=== PATIENT | male | born 2000 | race Caucasian/White ===

== ENCOUNTER 2020-06-29 21:42 | Emergency (ER) | payer SELFPAY ==
[2020-06-29] MEDS ORDERED: traMADol 50 MG Tab PO ONE (22:07)
[2020-06-29] MEDS ORDERED: Ibuprofen 600 MG Tab PO ONE (22:07)
--- NOTE | 2020-06-29 22:48 | EDM.PDOC ---
ED HPI GENERAL MEDICAL PROBLEM - General Chief Complaint: Lower Extremity Injury/Pain Stated Complaint: INJURED LT FOOT Time Seen by Provider: 06/29/20 22:01 - History of Present Illness INITIAL COMMENTS - FREE TEXT/NARRATIVE: HISTORY AND PHYSICAL: History of present illness: This is a healthy 20-year-old gentleman who presents ER today complaining of pain to his left foot that was incurred after a transmission fell on his foot. Patient reports pain with ambulation. Patient reports superficial abrasion over the dorsum of his left foot. Patient denies any other injuries or discomfort. Review of systems: As per history of present illness and below otherwise all systems reviewed and negative. Past medical history: As per history of present illness and as reviewed below otherwise noncontributory. Surgical history: As per history of present illness and as reviewed below otherwise noncontributory. Social history: No reported history of drug or alcohol abuse. Family history: As per history of present illness and as reviewed below otherwise noncontributory. Physical exam: Constitutional: Patient is oriented to person, place, and time. Appears well- developed and well-nourished. No distress. HEENT: Moist mucous membranes Head: Normocephalic and atraumatic Eyes: Right eye exhibits no discharge. Left eye exhibits no discharge. No scleral icterus Neck: Normal range of motion. No tracheal deviation present. Cardiovascular: Normal rate and regular rhythm. Pulmonary: Effort normal, no respiratory distress. Abdominal: No distention Musculoskeletal: Normal range of motion Neurologic: Alert and oriented to person, place and time. Skin: [place], warm and dry. Psychiatric: Normal mood and affect. Behavior is normal. Judgment and thought content normal. Nursing note and vital signs have been reviewed Patient's ER physical exam is significant for soft tissue swelling and tenderness to palpation to the top of his left foot. Patient has excellent capillary refill. Patient is neurovascular intact distally. Diagnostics: X-ray left foot No acute fracture dislocation as interpreted by ER Dr. Childs X-ray left ankle No acute fracture dislocation as interpreted by ER Dr. Childs Therapeutics: Ultram 50 mg p.o. Ibuprofen 600 mg p.o. Hard soled shoe, crutches Assessment and plan: This is a 20-year-old gentleman who presents the ER today secondary to crush injury of the left foot. Patient's x-rays are negative for acute fracture. Patient will be placed in a hard sole shoe and crutches to assist with healing. Patient be given a prescription for ibuprofen and Ultram as well as rest elevation ice. DME note: Hard sole shoe ordered in order to assist with healing of likely foot sprain/crush injury. Crutches ordered in order to assist patient with ambulation and healing of his left foot injury. L top foot Pain Score (Numeric/FACES): 7 - Related Data Allergies Allergy/AdvReac Type Severity Reaction Status Date / Time No Known Allergies Allergy Verified 06/29/20 22:05 Home Meds: Home Meds Ibuprofen 600 mg PO Q6HR PRN #30 tablet 06/29/20 [Rx] traMADol [Ultram] 50 mg PO Q6H PRN #12 tab 06/29/20 [Rx] Past Medical History - Past Health History Medical/Surgical History: Denies Medical/Surgical History - Infectious Disease History Infectious Disease History: Reports: Chicken Pox Social & Family History - Family History Family Medical History: Noncontributory - Caffeine Use Caffeine Use: Reports: Coffee, Energy Drinks, Soda - Recreational Drug Use Recreational Drug Use: No Review of Systems - Review of Systems Review Of Systems: See Below ED EXAM, GENERAL - Physical Exam Exam: See Below Course - Vital Signs Last Recorded V/S: Last Vital Signs Temp 97.8 F 06/29/20 21:57 Pulse 78 06/29/20 21:57 Resp 18 06/29/20 21:57 BP 129/81 06/29/20 21:57 Pulse Ox 98 06/29/20 21:57 - Orders/Labs/Meds Orders: Active Orders 24 hr Category Date Time Status DME for Discharge [COMM] Stat Oth 06/29/20 23:37 Ordered Meds: Medications Discontinued Medications Generic Name Dose Route Start Last Admin Trade Name Freq PRN Reason Stop Dose Admin Ibuprofen 600 mg 06/29/20 22:07 06/29/20 22:12 Motrin PO 06/29/20 22:08 600 mg ONETIME ONE Administration Tramadol HCl 50 mg 06/29/20 22:07 06/29/20 22:12 Ultram PO 06/29/20 22:08 50 mg ONETIME ONE Administration Departure - Departure Time of Disposition: 23:42 Disposition: Home, Self-Care 01 Clinical Impression: Crush injury of left foot, Sprain of foot, left - Discharge Information Instructions: Crutch Use, Adult, [id number], Foot Sprain, Crush Injury of the Foot, [id number] Referrals: PCP,None [Primary Care Provider] - Forms: ED Department Discharge Additional Instructions: You were seen and evaluated in the ER secondary to the injury to your left foot. The x-rays obtained today did not show any fracture. You likely have bruising to the bone and possible injury to the ligaments of your foot. You will be given a splint for your foot to use until you are pain-free which should help you heal faster. You will also be given crutches in order to utilize to keep pressure off your foot. You may weight-bear as tolerated. Please make an appointment to follow-up with your Workmen's Comp. doctor for further evaluation and management of your injury. You have been given a prescription for Ultram as well as ibuprofen to assist with pain and discomfort. The following information is given to patients seen in the emergency department who are being discharged to home. This information is to outline your options for follow-up care. We provide all patients seen in our emergency department with a follow-up referral. The need for follow-up, as well as the timing and circumstances, are variable depending upon the specifics of your emergency department visit. If you don't have a primary care physician on staff, we will provide you with a referral. We always advise you to contact your personal physician following an emergency department visit to inform them of the circumstance of the visit and for follow-up with them and/or the need for any referrals to a consulting specialist. The emergency department will also refer you to a specialist when appropriate. This referral assures that you have the opportunity for follow-up care with a specialist. All of these measure are taken in an effort to provide you with optimal care, which includes your follow-up. Under all circumstances we always encourage you to contact your private physician who remains a resource for coordinating your care. When calling for follow-up care, please make the office aware that this follow-up is from your recent emergency room visit. If for any reason you are refused follow-up, please contact the [facility] Emergency Department at and asked to speak to the emergency department charge nurse. Sepsis Event Note (ED) - Evaluation Sepsis Screening Result: No Definite Risk - Focused Exam Vital Signs: Vital Signs Temp Pulse Resp BP Pulse Ox 06/29/20 21:57 97.8 F 78 18 129/81 98 - My Orders Last 24 Hours: My Active Orders 06/29/20 23:37 DME for Discharge [COMM] Stat - Assessment/Plan Last 24 Hours: My Active Orders 06/29/20 23:37 DME for Discharge [COMM] Stat
--- NOTE | 2020-06-29 23:30 | CR ---
Left ankle: 3 views left ankle were obtained. Comparison: No previous ankle study. Ankle mortise is symmetric. No acute fracture, dislocation or other bony abnormality is appreciated. Impression: 1. Nothing acute is seen on left ankle exam. Diagnostic code #1 This report was dictated in MDT
--- NOTE | 2020-06-29 23:31 | CR ---
Left foot: 3 views left foot were obtained. Comparison: No prior foot exam. Slight soft tissue swelling seen dorsally. Joint spaces are preserved. No acute fracture, dislocation or other bony abnormality is appreciated. Impression: 1. Soft tissue swelling dorsally. 2. No acute bony abnormality is appreciated. Diagnostic code #2 This report was dictated in MDT
== END 2020-06-30 00:10 | disposition home or self-care (01) ==
LOC: MW.ED 21:42
DX: S97.82XA Crushing injury of left foot, initial encounter (principal); S93.602A Unspecified sprain of left foot, initial encounter; W18.30XA Fall on same level, unspecified, initial encounter
CPT/HCPCS: 73610; 73630; 99283; A9270

== ENCOUNTER 2021-05-29 11:40 | Emergency (ER) | payer OTHER ==
--- NOTE | 2021-05-29 11:50 | EDM.PDOC ---
ED HPI GENERAL MEDICAL PROBLEM - General Chief Complaint: Respiratory Problem Stated Complaint: CHILLS COUGH SOB Time Seen by Provider: 05/29/21 11:49 Source of Information: Reports: Patient History Limitations: Reports: No Limitations - History of Present Illness INITIAL COMMENTS - FREE TEXT/NARRATIVE: HISTORY AND PHYSICAL: History of present illness: Patient is a 21-year-old male who presents to the emergency room with complaints of shortness of breath, cough and chills since 2 AM this morning. He states he has a history of pneumonia and is concerned he may have pneumonia or COVID-19. Patient denies any fever, headache, change in vision, syncope or near syncope. Denies any chest pain, back pain or hemoptysis. Denies any GI or symptoms. No recent travel. No close sick contacts. Patient does not have any history of pulmonary or cardiac illness. Review of systems: As per history of present illness and below otherwise all systems reviewed and negative. Past medical history: As per history of present illness and as reviewed below otherwise noncontributory. Surgical history: As per history of present illness and as reviewed below otherwise noncontribut ory. Social history: See social history for further information Family history: As per history of present illness and as reviewed below otherwise noncontributory. Physical exam: General: Well developed and well nourished 21 year old male. Alert and orientated x 3. Nontoxic in appearance and in no acute distress. Vital signs are stable and have been reviewed by me. Nursing notes were reviewed. HEENT: Atraumatic, normocephalic, pupils equal and reactive bilaterally, negative for conjunctival pallor or scleral icterus, mucous membranes moist, nontender, trachea midline. No drooling or trismus noted. No meningeal signs. No hot potato voice noted. Lungs: Clear to auscultation bilaterally. No wheezes, rales, or rhonchi. Chest nontender. Normal work of breathing, no accessory muscles used. Dry nonproductive cough noted. Heart: S1S2, regular rate and rhythm without overt murmur, gallops, or rubs. No JVD. No peripheral edema Abdomen: Soft, nondistended, nontender. Negative for masses or costovertebral tenderness. Skin: Intact, warm, dry. No lesions or rashes noted. Hematologic: No petechiae or purpra. Mucosa appropriate color and normal nail bed color and refill. Extremities: Atraumatic, moves all extremities per self without difficulty or deficits, negative for cords or calf pain. Neurovascular unremarkable. Neuro: Awake, alert, oriented. Cranial nerves II through XII unremarkable. Cerebellum unremarkable. Motor and sensory unremarkable throughout. Exam nonfocal. Psychiatric: Mood and affect are appropriate. Normal thought process. Answering questions appropriately. Notes: *This patient was seen and evaluated during the 2019 SARS-CoV-2 novel coronavirus pandemic period. Community viral transmission is ongoing at time of this encounter and the emergency department is operating under pandemic response procedures. Patient is a 21-year-old male who presents to the emergency room with complaints of shortness of breath, cough and chills. He states symptoms started early this morning. No other household members are ill. He is concerned he has pneumonia or COVID-19. Physical exam is unremarkable. His vital signs are stable. Chest x-ray is unremarkable. Patient continues to have dry nonproductive cough. He is very worried about pneumonia stating he has had this several times in the past. I will cover him with azithromycin and prednisone. I have talked with the patient about today's findings, in addition to providing specific details for plan of care. Reassessment at the time of disposition demonstrates that the patient is in no acute distress. The patient is stable for discharge, counseling was provided and we discussed in great detail signs and symptoms that would prompt them to return to the Emergency Department. Medication, follow up and supportive care measures were reviewed and discussed. Voices understanding and is agreeable to plan of care. Denies any further questions or concerns at this time. Diagnostics: CXR, COVID-19 Therapeutics: None Prescription: Z-Ernesto, prednisone Impression: URI Plan: 1. Today you were evaluated on an emergent basis. CXR is unremarkable. Due to your history of pneumonia we will treat you for atypical with antibiotics and steroids. 2. Please use [id number] medications to help with symptoms. You can use Tylenol and/or ibuprofen as needed for pain and fever management. 3. Please follow-up with your primary care provider as we discussed for reevaluation of symptoms and further management and care. 4. Should your symptoms worsen, new symptoms develop or you feel uncomfortable at home at any time you are more than welcome to return to the emergency room and/or call 911 for further assistance. Definitive disposition and diagnosis as appropriate pending reevaluation and review of above. Chest Pain Score (Numeric/FACES): 8 - Related Data Allergies Allergy/AdvReac Type Severity Reaction Status Date / Time No Known Allergies Allergy Verified 05/29/21 12:23 Home Meds: Home Meds Azithromycin [Zithromax] 1 dose PO DAILY 5 Days #6 tab 05/29/21 [Rx] predniSONE [Prednisone] 40 mg PO DAILY 5 Days #10 tablet 05/29/21 [Rx] Past Medical History - Past Health History Medical/Surgical History: Denies Medical/Surgical History - Infectious Disease History Infectious Disease History: Reports: Chicken Pox Social & Family History - Family History Family Medical History: No Pertinent Family History - Caffeine Use Caffeine Use: Reports: Coffee, Energy Drinks, Soda ED ROS GENERAL - Review of Systems Review Of Systems: Comprehensive ROS is negative, except as noted in HPI. ED EXAM, GENERAL - Physical Exam Exam: See Below (See dictation) Course - Vital Signs Last Recorded V/S: Last Vital Signs Temp 96.9 F 05/29/21 12:24 Pulse 74 05/29/21 12:24 Resp 18 05/29/21 12:24 BP 132/66 05/29/21 12:24 Pulse Ox 96 05/29/21 12:24 - Orders/Labs/Meds Orders: Active Orders 24 hr Category Date Time Status Isolation [COMM] Routine Oth 05/29/21 11:50 Active Labs: Laboratory Tests 05/29/21 Range/Units 12:18 SARS-CoV-2 RNA (NEO) NEGATIVE (NEGATIVE) Departure - Departure Time of Disposition: 13:26 Disposition: Home, Self-Care 01 Clinical Impression: URI (upper respiratory infection) Qualifiers: URI type: unspecified URI Qualified Code(s): J06.9 - Acute upper respiratory infection, unspecified - Discharge Information Prescriptions: predniSONE [Prednisone] 40 mg PO DAILY 5 Days #10 tablet Azithromycin [Zithromax] 1 dose PO DAILY 5 Days #6 tab Instructions: Upper Respiratory Infection, Adult, [id number] Referrals: PCP,None [Primary Care Provider] - Forms: ED Department Discharge Additional Instructions: The following information is given to patients seen in the emergency department who are being discharged to home. This information is to outline your options for follow-up care. We provide all patients seen in our emergency department with a follow-up referral. The need for follow-up, as well as the timing and circumstances, are variable depending upon the specifics of your emergency department visit. If you don't have a primary care physician on staff, we will provide you with a referral. We always advise you to contact your personal physician following an emergency department visit to inform them of the circumstance of the visit and for follow-up with them and/or the need for any referrals to a consulting specialist. The emergency department will also refer you to a specialist when appropriate. This referral assures that you have the opportunity for follow-up care with a specialist. All of these measure are taken in an effort to provide you with optimal care, which includes your follow-up. Under all circumstances we always encourage you to contact your private physician who remains a resource for coordinating your care. When calling for follow-up care, please make the office aware that this follow-up is from your recent emergency room visit. If for any reason you are refused follow-up, please contact the [facility] Emergency Department at and asked to speak to the emergency department charge nurse. [facility] [address] [place] [id number] [address] Thank you for choosing the [facility] emergency department in [place] for your medical needs today. It was a pleasure caring for you. Today you were seen in the emergency department for URI. 1. Today you were evaluated on an emergent basis. CXR is unremarkable. Due to your history of pneumonia we will treat you for atypical with antibiotics and steroids. 2. Please use [id number] medications to help with symptoms. You can use Tylenol and/or ibuprofen as needed for pain and fever management. 3. Please follow-up with your primary care provider as we discussed for reevaluation of symptoms and further management and care. 4. Should your symptoms worsen, new symptoms develop or you feel uncomfortable at home at any time you are more than welcome to return to the emergency room and/or call 911 for further assistance. Sepsis Event Note (ED) - Focused Exam Vital Signs: Vital Signs Temp Pulse Resp BP Pulse Ox 05/29/21 12:24 96.9 F 74 18 132/66 96 - My Orders Last 24 Hours: My Active Orders 05/29/21 11:50 Isolation [COMM] Routine - Assessment/Plan Last 24 Hours: My Active Orders 05/29/21 11:50 Isolation [COMM] Routine
--- NOTE | 2021-05-29 12:36 | CR ---
INDICATION: Difficulty breathing. TECHNIQUE: AP portable chest. FINDINGS: Shallow inspiration. Clear lungs. Normal heart size and pulmonary vascularity. Normal included skeleton. IMPRESSION: Negative AP portable upright chest. Dictated by Emeterio Mcclellan MD @ 05/29/2021 12:34:[address] Emeterio Mcclellan @ May 29 2021 12:34PM
== END 2021-05-29 13:36 | disposition home or self-care (01) ==
LOC: MW.ED 11:40
DX: J06.9 Acute upper respiratory infection, unspecified (principal); Z20.822 Contact with and (suspected) exposure to COVID-19
CPT/HCPCS: 71045; 71045-26; 87804; 99283-25; U0002

== ENCOUNTER 2022-09-27 15:31 | Emergency (ER) | payer BC, OTHER | END 2022-09-27 16:47 | disposition home or self-care (01) | LOC: MW.ED 15:31 | DX: S60.222A Contusion of left hand, initial encounter (principal); W22.8XXA Striking against or struck by other objects, initial encounter | CPT/HCPCS: 73130-26-LT; 73130-LT; 99282; 99283 ==

== ENCOUNTER 2023-04-01 08:13 | Emergency (ER) | payer OTHER ==
[2023-04-01] MEDS ORDERED: Sodium Chloride 0.9% 1,000 ML IV ONE (08:19)
[2023-04-01] MEDS ORDERED: Ondansetron 4 MG/2 ML SDV IVPUSH ONE (08:19)
[2023-04-01] MEDS ORDERED: Morphine 4 MG/ML Syringe IVPUSH ONE ×2 (08:19→09:16)
[2023-04-01] MEDS ORDERED: HYDROmorphone 1 MG/ML Syringe IVPUSH ONE (09:25)
[2023-04-01] MEDS ORDERED: fentaNYL 50 MCG/ML SDV IVPUSH ONE ×2 (10:32→11:32)
[2023-04-01 10:49] LABS: HEMATOCRIT 37.8 % (38.0-50.0); HEMOGLOBIN 13.6 g/dL (13.0-17.0); LYMPHOCYTES PERCENT AUTO 4.3 % (16.0-40.0); MEAN CORPUSCULAR HEMOGLOBIN 30.8 pg (27.0-32.0); MEAN CORPUSCULAR VOLUME 85.7 fL (80.0-98.0); MONOCYTES ABSOLUTE AUTO 1.3 K/uL (0.0-0.8); MONOCYTES PERCENT AUTO 5.6 % (0.0-15.0); NEUTROPHILS ABSOLUTE AUTO 20.3 K/uL (1.4-5.7); NEUTROPHILS PERCENT AUTO 90.1 % (48.0-80.0); NRBC ABSOLUTE 0 K/uL; PLATELET COUNT,PLT 171 K/uL (150-400); RED BLOOD CELL COUNT 4.41 M/uL (4.50-5.90); WHITE BLOOD CELL COUNT,WBC 22.58 K/uL (4.0-11.0)
[2023-04-01 11:00] LABS: INR 1.08 (0.86-1.11)
[2023-04-01 11:06] LABS: A/G RATIO 1.1 (0.9-1.6); ALANINE AMINOTRANSFERASE,ALT 85 IU/L (14-63); ALBUMIN 3.5 g/dL (3.4-5.0); ALKALINE PHOSPHATASE 68 U/L (46-116); ASPARTATE AMNIOTRANSFERASE,AST 49 IU/L (15-37); BILIRUBIN TOTAL 0.3 mg/dL (0.2-1.0); BLOOD UREA NITROGEN,BUN 13 mg/dL (7.0-18.0); CARBON DIOXIDE,CO2 25.6 mmol/L (21.0-32.0); CHLORIDE,CL 105 mmol/L (98-107); CREATINE KINASE,CK 800 U/L (26-308); CREATININE 1.1 mg/dL (0.8-1.3); EST CRCL DRUG DOSING (CG) 119.36 mL/min; GLUCOSE RANDOM 133 mg/dL (74-106); LIPASE 162 U/L (73-393); MAGNESIUM 1.8 mg/dL (1.8-2.4); POTASSIUM,K 4.3 mmol/L (3.5-5.1); PROTEIN TOTAL,TP 6.6 g/dL (6.4-8.2); SODIUM,NA 140 mmol/L (136-148)
[2023-04-01 11:07] LABS: ESTIMATED GFR 96 mL/min (>60); ETHANOL BLOOD MEDICAL < 3.0 mg/dL
[2023-04-01] MEDS ORDERED: fentaNYL 50 MCG/ML SDV ONE (11:33)
== END 2023-04-01 11:55 ==
LOC: MW.ED 08:13
DX: S36.039A Unspecified laceration of spleen, initial encounter (principal); S32.9XXA Fracture of unspecified parts of lumbosacral spine and pelvis, initial encounter for closed fracture; V86.55XA Driver of 3- or 4- wheeled all-terrain vehicle (ATV) injured in nontraffic accident, initial encounter
CPT/HCPCS: 36415; 71260; 72170; 74177; 80053; 80307; 82550; 83690; 83735; 84484; 85025; 85610; 85730; 96361; 96374; 96375; 96376; 99291; J1170; J2270; J2405; J3010; J7030; P9016; 72128; 72128-26; 72131; 72131-26

== ENCOUNTER 2025-07-05 11:11 | Emergency (ER) | payer OTHER | END 2025-07-05 12:57 | disposition left against medical advice (07) | LOC: MW.ED 11:11 | DX: Z53.21 Procedure and treatment not carried out due to patient leaving prior to being seen by health care provider (principal) ==